=== PATIENT | female | born 2000 | race Caucasian/White ===

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

== ENCOUNTER 2018-03-01 12:27 | Emergency (ER) | payer MEDICAID ==
[2018-03-01 12:43] VITALS: BP 124/85
--- NOTE | 2018-03-01 13:28 | EDM.PDOC ---
ED HPI GENERAL MEDICAL PROBLEM - General Chief Complaint: Skin Complaint Stated Complaint: RASH ON ARMS Time Seen by Provider: 03/01/18 12:40 Source of Information: Reports: Patient, Family History Limitations: Reports: No Limitations - History of Present Illness INITIAL COMMENTS - FREE TEXT/NARRATIVE: pt has a rash on her neck, back and arms. These do have a scale on them. 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 Exam Limited By: No Limitations General Appearance: Alert Ears: Normal TMs Nose: Normal Inspection Throat/Mouth: Normal Inspection Skin: Rash Location, Skin: Face, Neck, Chest, Back, Upper Extremity, Right, Upper Extremity , Left Characteristics: Patchy, Other ( each lesion has a scale on it. ) Course - Vital Signs Last Recorded V/S: Last Vital Signs Temp 37.7 C 03/01/18 12:38 Pulse 74 03/01/18 12:38 Resp 16 03/01/18 12:38 BP 124/85 03/01/18 12:38 Pulse Ox 99 03/01/18 12:38 - Orders/Labs/Meds Orders: Active Orders 24 hr Category Date Time Status STEPHEN PREP [MYC] Stat Lab 03/01/18 13:06 Ordered Labs: Laboratory Tests 05/06/18 Range/Units 13:07 WBC 3.7 L (4.5-11.0) K/uL RBC 5.00 (3.30-5.50) M/uL Hgb 13.0 (12.0-15.0) g/dL Hct 39.4 (36.0-48.0) % MCV 79 L (80-98) fL MCH 26 L (27-31) pg MCHC 33 (32-36) % Plt Count 247 (150-400) K/uL Neut % (Auto) 39 (36-66) % Lymph % (Auto) 49 H (24-44) % [place] % (Auto) 10 H (2-6) % Eos % (Auto) 2 (2-4) % Baso % (Auto) 1 (0-1) % - Re-Assessments/Exams Free Text/Narrative Re-Assessment/Exam: 03/01/18 13:25 scrapings of the scale from the lesions did reveal hyphae indicating that this is a fungal rash. a wbc was obtained which was low and could indicate she has a viral rash. Departure - Departure Time of Disposition: 13:26 Disposition: Home, Self-Care 01 Condition: Fair Clinical Impression: Fungal rash of trunk - Discharge Information Referrals: Candy Huertas PA-C [Primary Care Provider] - Care Plan Goals: lotrizone cream to the lesions tid, check with regular Dr If not improving. - My Orders Last 24 Hours: My Active Orders 03/01/18 13:06 STEPHEN PREP [MYC] Stat - Assessment/Plan Last 24 Hours: My Active Orders 03/01/18 13:06 STEPHEN PREP [MYC] Stat
== END 2018-03-01 13:37 | disposition home or self-care (01) ==
LOC: JP.ED 12:27
DX: B36.9 Superficial mycosis, unspecified (principal)
CPT/HCPCS: 36415; 85025; 87220; 99283

== ENCOUNTER 2019-11-01 15:11 | Emergency (ER) | payer MEDICAID ==
[2019-11-01 15:30] VITALS: BP 119/78; PULSE 101
[2019-11-01] MEDS ORDERED: Sodium Chloride 0.9% 10 ML Syringe FLUSH PRN (16:20)
--- NOTE | 2019-11-01 16:22 | EDM.PDOC ---
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 She denies any vaginal bleeding no large gush of fluid no fevers no difficulty with urination. 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 ENGINEER History: preeclamcia Social & Family History - Tobacco Use Smoking Status *Q: Never Smoker - Caffeine Use Caffeine Use: Reports: None - Recreational Drug Use Recreational Drug Use: No ED ROS GENERAL - Review of Systems Review Of Systems: See Below Constitutional: Reports: No Symptoms HEENT: Reports: No Symptoms Respiratory: Reports: Shortness of Breath Cardiovascular: Reports: Lightheadedness GI/Abdominal: Reports: No Symptoms : Reports: No Symptoms Musculoskeletal: Reports: No Symptoms Skin: Reports: No Symptoms Neurological: Reports: Dizziness ED EXAM - Physical Exam Exam: See Below Exam Limited By: No Limitations General Appearance: Alert, WD/WN, No Apparent Distress Throat/Mouth: No Airway Compromise Head: Atraumatic, Normocephalic Neck: Normal Inspection, Supple, Non-Tender, Full Range of Motion Respiratory/Chest: No Respiratory Distress, Lungs Clear, Normal Breath Sounds, No Accessory Muscle Use, Chest Non-Tender Cardiovascular: Regular Rate, Rhythm, No Murmur GI/Abdominal Exam: Soft, Tender () Heart Tones: Present Heart Tones per Min: 150 Movement: Active Back Exam: Normal Inspection, Full Range of Motion. No: CVA Tenderness (R), CVA Tenderness (L) Extremities: Normal Inspection, No Pedal Edema Course - Vital Signs Last Recorded V/S: Last Vital Signs Temp 97.2 F 11/01/19 15:40 Pulse 101 H 11/01/19 15:40 Resp 16 11/01/19 15:40 BP 119/78 11/01/19 15:40 Pulse Ox 96 11/01/19 15:40 - Orders/Labs/Meds Orders: Active Orders 24 hr Category Date Time Status Peripheral IV Care [RC] . DIRECTED Care 11/01/19 16:20 Active Lactated Ringers [Ringers, Lactated] 2,000 ml Med 11/01/19 16:20 Active IV BOLUS Sodium Chloride 0.9% [Saline Flush] Med 11/01/19 16:20 Active 10 ml FLUSH ASDIRECTED PRN Peripheral IV Insertion Adult [OM.PC] Urgent Oth 11/01/19 16:20 Ordered Medication Orders Lactated Ringer's (Ringers, Lactated) 2,000 mls @ 999 mls/hr IV BOLUS ONE Stop: 11/01/19 18:20 Last Admin: 11/01/19 17:33 Dose: 999 mls/hr Infusion: 11/01/19 17:33 Dose: 999 mls/hr Admin: 11/01/19 16:28 Dose: 999 mls/hr Sodium Chloride (Saline Flush) 10 ml FLUSH ASDIRECTED PRN PRN Reason: Keep Vein Open Labs: Laboratory Tests 11/01/19 Range/Units 16:01 Urine Color Yellow (YELLOW) Urine Appearance Cloudy A (CLEAR) Urine pH 6.0 (5.0-8.0) Ur Specific [place] >= 1.030 (1.008-1.030) Urine Protein Trace H (NEGATIVE) mg/dL Urine Glucose (UA) Negative (NEGATIVE) mg/dL Urine Ketones Negative (NEGATIVE) mg/dL Urine Occult Blood Negative (NEGATIVE) Urine Nitrite Negative (NEGATIVE) Urine Bilirubin Negative (NEGATIVE) Urine Urobilinogen 0.2 (0.2-1.0) EU/dL Ur Leukocyte Esterase Small (NEGATIVE) Urine RBC 0-5 (0-5) Urine WBC 20-30 H (0-5) Ur Epithelial Cells Many Amorphous Sediment Many Urine Bacteria Many Urine Mucus Not seen Meds: Medications Generic Name Dose Route Start Last Admin Trade Name Mikki PRN Reason Stop Dose Admin Lactated Ringer's 2,000 mls @ 999 mls/hr 11/01/19 16:20 11/01/19 17:33 Ringers, Lactated IV 11/01/19 18:20 999 mls/hr BOLUS ONE Administration Sodium Chloride 10 ml 11/01/19 16:20 Saline Flush FLUSH ASDIRECTED PRN Keep Vein Open Departure - Departure Time of Disposition: 18:07 Disposition: Home, Self-Care 01 Condition: Fair Clinical Impression: Dehydration Qualifiers: Weeks of gestation: 32 weeks Qualified Code(s): Z3A.32 - 32 weeks gestation of - Discharge Information Instructions: Dehydration, Adult, [id number] Referrals: Candy Huertas PA-C [Primary Care Provider] - Forms: ED Department Discharge Additional Instructions: Continue to push fluids, please keep your follow-up appointment with your OB provider tomorrow Sepsis Event Note - Evaluation Sepsis Screening Result: No Definite Risk - Focused Exam Vital Signs: Vital Signs Temp Pulse Resp BP Pulse Ox 11/01/19 15:40 97.2 F 101 H 16 119/78 96 11/01/19 15:29 97.2 F 101 H 16 119/78 96 Date Exam was Performed: 11/01/19 Time Exam was Performed: 18:06 - My Orders Last 24 Hours: My Active Orders 11/01/19 16:20 Peripheral IV Care [RC] . DIRECTED Lactated Ringers [Ringers, Lactated] 2,000 ml IV BOLUS Sodium Chloride 0.9% [Saline Flush] 10 ml FLUSH ASDIRECTED PRN Peripheral IV Insertion Adult [OM.PC] Urgent - Assessment/Plan Last 24 Hours: My Active Orders 11/01/19 16:20 Peripheral IV Care [RC] . DIRECTED Lactated Ringers [Ringers, Lactated] 2,000 ml IV BOLUS Sodium Chloride 0.9% [Saline Flush] 10 ml FLUSH ASDIRECTED PRN Peripheral IV Insertion Adult [OM.PC] Urgent Plan: Assessment Acuity = acute Site and laterality = dehydration complicating the patient 32 weeks intrauterine gestation Etiology = poor oral intake Manifestations = lightheadedness now resolved Location of injury = Home Lab values = specific gravity on urinalysis 1.03 Plan She had good improvement after 2 L of fluid plan is to discharge home she will follow-up with her OB provider tomorrow This note was dictated using [employer] voice recognition software please call with any questions on syntax or grammar.
[2019-11-01] MEDS: Lactated Ringers 2,000 ML IV ONE ×2 (16:28→17:33)
== END 2019-11-01 18:36 | disposition home or self-care (01) ==
LOC: JP.ED 15:11
DX: O99.283 Endocrine, nutritional and metabolic diseases complicating pregnancy, third trimester (principal); E86.0 Dehydration; Z79.82 Long term (current) use of aspirin; Z3A.32 32 weeks gestation of pregnancy
CPT/HCPCS: 81001; 96360; 99284; J7120

== ENCOUNTER 2020-06-12 20:29 | Emergency (ER) | payer MEDICAID ==
[2020-06-12 20:44] VITALS: BP 132/88; PULSE 93
--- NOTE | 2020-06-12 21:01 | EDM.PDOC ---
ED HPI GENERAL MEDICAL PROBLEM - General Chief Complaint: Eye Problems Stated Complaint: right eye swollen Time Seen by Provider: 06/12/20 20:45 Source of Information: Reports: Patient History Limitations: Reports: No Limitations - History of Present Illness INITIAL COMMENTS - FREE TEXT/NARRATIVE: 20-year-old female with a swollen, reddened and painful periorbital region around the right eye inferiorly. It started last evening with pain on top of the zygomatic bone and now has worked its way into the medial corner of the eye around the tear duct. The soft tissue is slightly swollen, erythematous, and tender to the touch. She has a small amount of pain with movement of the eye but the eye itself feels fine, vision is not affected. This has happened a couple of times in the past and resolved spontaneously but this is the worst it has been. She does not wear contacts or glasses. 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 Denies: Vision Change Respiratory: Reports: No Symptoms Cardiovascular: Reports: No Symptoms GI/Abdominal: Reports: No Symptoms Neurological: Denies: Headache ED EXAM GENERAL W FULL EYE - Physical Exam Exam: See Below Exam Limited By: No Limitations General Appearance: Alert, No Apparent Distress Eye Exam: Right Eye: Periorbital Changes (The lower eyelid is edematous, slightly reddened and tender to palpation. There is slightly increased swelling around the tear duct, also tender to palpation just over the zygomatic arch on the right side.) Conjunctiva & Sclera: Right: Conjunctival Edema (Slight conjunctival edema under the right eyelid) Cornea Exam: Bilateral: Normal Appearance Extraocular Movements: Bilateral: Intact Respiratory/Chest: No Respiratory Distress Course - Vital Signs Last Recorded V/S: Last Vital Signs Temp 98.1 F 06/12/20 20:47 Pulse 93 06/12/20 20:47 Resp 16 06/12/20 20:47 BP 132/88 06/12/20 20:47 Pulse Ox 95 06/12/20 20:47 - Re-Assessments/Exams Free Text/Narrative Re-Assessment/Exam: 06/12/20 21:00 There appears to be some slight obstruction of the tear duct or inflammatory response to a gland around the lower eyelid causing inflammation. She may have early periorbital cellulitis forming. I will place her on Augmentin 875 mg twice daily and encouraged warm compresses and massage to the eye and recheck with optometry in the next 24 to 48 hours if worsening. If improving take at least 5 days of antibiotic. Departure - Departure Time of Disposition: 21:08 Disposition: Home, Self-Care 01 Clinical Impression: Periorbital cellulitis of right eye - Discharge Information Instructions: Orbital Cellulitis Referrals: Candy Huertas PA-C [Primary Care Provider] - Forms: ED Department Discharge Care Plan Goals: Take 1 dose of antibiotic twice daily with food for 10 full doses. Warm compresses to the eye may be helpful once on the antibiotic. Ibuprofen or naproxen will also be helpful. Recheck with optometry in the next 48 hours if not improving while on the antibiotic. Sepsis Event Note (ED) - Evaluation Sepsis Screening Result: No Definite Risk - Focused Exam Vital Signs: Vital Signs Temp Pulse Resp BP Pulse Ox 06/12/20 20:47 98.1 F 93 16 132/88 95 06/12/20 20:43 98.1 F 93 16 132/88 95
== END 2020-06-12 21:08 | disposition home or self-care (01) ==
LOC: JP.ED 20:29
DX: L03.213 Periorbital cellulitis (principal)
CPT/HCPCS: 99283